=== PATIENT | female | born 1955 | race Caucasian/White ===

== ENCOUNTER 2017-05-03 12:50 | Outpatient (CLI) | payer OTHER | END 2017-05-03 13:19 | disposition home or self-care (01) | LOC: RAD 501 12:50 | DX: M77.31 Calcaneal spur, right foot (principal); M77.32 Calcaneal spur, left foot ==

== ENCOUNTER 2018-06-24 07:25 | Outpatient (CLI) | payer OTHER | END 2018-06-24 10:20 | disposition home or self-care (01) | LOC: LAB 07:25 | DX: E66.8 Other obesity (principal); I10 Essential (primary) hypertension ==

== ENCOUNTER 2018-11-25 07:13 | Outpatient (CLI) | payer OTHER | END 2018-11-25 07:23 | disposition home or self-care (01) | LOC: LAB 07:13 | DX: N39.0 Urinary tract infection, site not specified (principal) ==

== ENCOUNTER 2022-08-06 07:58 | Outpatient (CLI) | payer OTHER | END 2022-08-06 08:06 | disposition home or self-care (01) | LOC: RAD 07:58 | PROVIDERS: ATTEND Internal Medicine | DX: R06.02 Shortness of breath (principal); R05.8 Other specified cough; J18.8 Other pneumonia, unspecified organism; M99.01 Segmental and somatic dysfunction of cervical region; M99.02 Segmental and somatic dysfunction of thoracic region; M99.03 Segmental and somatic dysfunction of lumbar region ==